=== PATIENT | female | born 1965 | race Caucasian/White ===

== ENCOUNTER → 2017-11-25 | Outpatient (CLI) | payer MEDICAID | LOC: FIMAGING 11:32 | PROVIDERS: ATTEND Physician Assistant Medical | DX: Z12.31 Encounter for screening mammogram for malignant neoplasm of breast (principal); Z80.3 Family history of malignant neoplasm of breast ==

== ENCOUNTER → 2018-08-02 | Outpatient (CLI) | payer MEDICAID | LOC: FIMAGING 13:05 | PROVIDERS: ATTEND Homeopath | DX: R06.02 Shortness of breath (principal); R05 Cough ==

== ENCOUNTER 2018-08-04 08:28 | Emergency (ER) | payer MEDICAID ==
--- NOTE | 2018-08-04 08:57 | EDPHY ---
H & P Time Seen by Provider: 08/04/18 08:53 HPI/ROS: Chief complaint. Shortness of breath HPI. 53-year-old female presents emergency department with shortness of breath for 3 weeks. She tells me she has had this feeling for a long time off and on but this time it has been fairly persistent. She felt it was somewhat worse today. She feels like she can't take a deep breath and occasionally her heart feels like it is racing. Symptoms can occur at rest or with exertion. She has occasional 1 sec twinge of discomfort left anterior chest without radiation. No symptoms of chest discomfort now. Denies fever cough. A few days ago she had some pain on the medial aspect of her left knee but there is no leg swelling and she does not have pain now. She did have a recent drive to [employer]. She has no history of thromboembolic disease. She does take progesterone. ROS 10 systems were reviewed and negative with the exception of the elements mentioned in the history of present illness Past Medical/Surgical History: Hypothyroid Social History: , nonsmoker, no alcohol Smoking Status: Never smoked Physical Exam: General Appearance: Alert well-developed female mild distress vital signs stable. Pulse oximeter is 100% saturation on room air Eyes: Pupils equal and round no pallor or injection. ENT, Mouth: Mucous membranes are moist. Respiratory: There are no retractions, lungs are clear to auscultation. Cardiovascular: Regular rate and rhythm. Gastrointestinal: Abdomen is soft and nontender, no masses, bowel sounds normal. Neurological: Awake and alert, sensory and motor exams grossly normal. Skin: Warm and dry, no rashes. Musculoskeletal: Neck is supple nontender. Extremities symmetrical, full range of motion. Psychiatric: Patient is oriented X 3, there is no agitation. Constitutional: Initial Vital Signs Temperature (C) 36.6 C 08/04/18 08:31 Heart Rate 72 08/04/18 08:31 Respiratory Rate 20 08/04/18 08:31 Blood Pressure 126/74 H 08/04/18 08:31 O2 Sat (%) 100 08/04/18 08:31 O2 Delivery Mode Room Air Allergies/Adverse Reactions: amoxicillin [From Augmentin] Allergy (Verified 08/04/18 08:31) clavulanic acid [From Augmentin] Allergy (Verified 08/04/18 08:31) Home Medications: Medication Instructions Recorded Progesterone 08/04/18 Synthroid 08/04/18 Medical Decision Making - Diagnostics EKG Interpretation: EKG interpreted by me shows normal sinus rhythm normal interval and axis. QRS is normal there is no significant ST elevation or depression. There is no arrhythmia. The rate is 69 Imaging Results: Chest x-ray from 2 days ago reviewed by me is normal Procedures: IV normal saline, monitor ED Course/Re-evaluation: Re-evaluation at 11:00 a.m.. Patient is stable. She is speaking in full sentences. Her oxygen saturation is 99-100% saturation. The patient and I discussed laboratory evaluation, treatment plan including criteria for return importance of follow-up and further evaluation. She expresses understanding and agreement Differential Diagnosis: I considered acute coronary syndrome, pneumonia, congestive heart failure, pulmonary embolus - Data Points Laboratory Results: Laboratory Results 08/04/18 09:20 08/04/18 09:20 08/04/18 08/04/18 08/04/18 09:50 09:20 09:20 WBC RBC Hgb Hct MCV MCH MCHC RDW Plt Count MPV Neut % (Auto) Lymph % (Auto) Kaufman % (Auto) Eos % (Auto) Baso % (Auto) Nucleat RBC Rel Count Absolute Neuts (auto) Absolute Lymphs (auto) Absolute Monos (auto) Absolute Eos (auto) Absolute Basos (auto) Absolute Nucleated RBC Immature Gran % Immature Gran # D-Dimer 0.29 ug/mLFEU ug/mLFEU (0.00-0.50) Sodium 139 mEq/L mEq/L (135-145) Potassium 3.8 mEq/L mEq/L (3.3-5.0) Chloride 106 mEq/L mEq/L (97-110) Carbon Dioxide 23 mEq/l mEq/l (22-31) Anion Gap 10 mEq/L mEq/L (6-14) BUN 11 mg/dL mg/dL (7-23) Creatinine 0.9 mg/dL mg/dL (0.6-1.0) Estimated GFR > 60 Glucose 69 mg/dL L mg/dL (70-100) Calcium 10.0 mg/dL mg/dL (8.5-10.4) POC Troponin I 0.00 ng/mL ng/mL (0.00-0.08) NT-Pro-B Natriuret Pep 59 pg/mL pg/mL (0-125) TSH 4.460 uIU/mL uIU/mL (0.465-4.680) 08/04/18 09:20 WBC 6.93 10^3/uL 10^3/uL (3.80-9.50) RBC 4.58 10^6/uL 10^6/uL (4.18-5.33) Hgb 13.5 g/dL g/dL (12.6-16.3) Hct 40.4 % % (38.0-47.0) MCV 88.2 fL fL (81.5-99.8) MCH 29.5 pg pg (27.9-34.1) MCHC 33.4 g/dL g/dL (32.4-36.7) RDW 13.2 % % (11.5-15.2) Plt Count 343 10^3/uL 10^3/uL (150-400) MPV 9.6 fL fL (8.7-11.7) Neut % (Auto) 53.8 % % (39.3-74.2) Lymph % (Auto) 35.6 % % (15.0-45.0) Kaufman % (Auto) 7.8 % % (4.5-13.0) Eos % (Auto) 1.2 % % (0.6-7.6) Baso % (Auto) 1.3 % % (0.3-1.7) Nucleat RBC Rel Count 0.0 % % (0.0-0.2) Absolute Neuts (auto) 3.73 10^3/uL 10^3/uL (1.70-6.50) Absolute Lymphs (auto) 2.47 10^3/uL 10^3/uL (1.00-3.00) Absolute Monos (auto) 0.54 10^3/uL 10^3/uL (0.30-0.80) Absolute Eos (auto) 0.08 10^3/uL 10^3/uL (0.03-0.40) Absolute Basos (auto) 0.09 10^3/uL 10^3/uL (0.02-0.10) Absolute Nucleated RBC 0.00 10^3/uL 10^3/uL (0-0.01) Immature Gran % 0.3 % % (0.0-1.1) Immature Gran # 0.02 10^3/uL 10^3/uL (0.00-0.10) D-Dimer Sodium Potassium Chloride Carbon Dioxide Anion Gap BUN Creatinine Estimated GFR Glucose Calcium POC Troponin I NT-Pro-B Natriuret Pep TSH Medications Given: Discontinued Medications Hydromorphone HCl (Dilaudid) 0.5 mg IVP EDNOW ONE Stop: 08/04/18 09:57 Last Admin: 08/04/18 10:32 Dose: Not Given Point of Care Test Results: Chemistry 08/04/18 09:50 POC Troponin I 0.00 ng/mL ng/mL (0.00-0.08) Departure - Departure Disposition: Home, Routine, Self-Care Clinical Impression: Dyspnea Qualifiers: Dyspnea type: unspecified Qualified Code(s): R06.00 - Dyspnea, unspecified Condition: Good Instructions: Dyspnea (ED) Additional Instructions: Resume taking your thyroid medication as previously prescribed Return for worsening symptoms. Recheck in 3-4 days if not improving Referrals: Celina Higginbotham PA [Primary Care Provider] - 3-4 days, if not improved
[2018-08-04 09:26] LABS: PLATELET COUNT 343 10^3/uL (150-400)
[2018-08-04] MEDS ORDERED: HYDROmorphONE/DILAUDID 1 MG/ML INJ IVP ONE (09:56)
[2018-08-04 11:37] VITALS: BP 111/87
--- NOTE | 2018-08-04 17:37 | CPEKG ---
Test Reason : OPEN Blood Pressure : / mmHG Vent. Rate : 069 BPM Atrial Rate : 068 BPM P-R Int : 125 ms QRS Dur : 088 ms QT Int : 387 ms P-R-T Axes : 068 043 039 degrees QTc Int : 415 ms Sinus rhythm Borderline T wave abnormalities Confirmed by Elvis Nelson [id number] on 08/04/2018 5:36:33 PM Referred By: Confirmed By:Elvis Nelson
== END 2018-08-04 11:39 | disposition home or self-care (01) ==
DX: R06.00 Dyspnea, unspecified (principal)
CPT/HCPCS: 84484-PO; 96374